=== PATIENT | male | born 1970 | race Caucasian/White ===

== ENCOUNTER → 2016-08-23 | Outpatient (CLI) | payer OTHER ==
--- NOTE | 2016-08-23 10:20 | DX ---
Right Clavicle, Two Views HISTORY: Fracture, follow up. COMPARISON: None available. FINDINGS: Comminuted displaced right clavicle fracture in the mid to distal diaphyseal shaft region w ith the proximal fragment displaced cephalad 2 cm. There are several small linear fragments between t he fracture lines. No definite callus formation. Right upper ribs demonstrate no definite fracture. IMPRESSION: Displaced comminuted right mid to distal clavicle fracture without alignment or callus fo rmation.
== END ==
LOC: BMCIMAGING 09:03
PROVIDERS: ATTEND Physician Assistant
DX: S42.021G Displaced fracture of shaft of right clavicle, subsequent encounter for fracture with delayed healing (principal)

== ENCOUNTER 2016-09-17 09:13 | Observation (INO) | payer OTHER ==
[2016-09-17] MEDS ORDERED: LORazepam 2 MG/ML INJ IVP ONE (09:39)
[2016-09-17] MEDS ORDERED: ONDANSETRON 4 MG/2 ML VIAL ONE (09:39)
[2016-09-17] MEDS ORDERED: ONDANSETRON 4 MG/2 ML VIAL IVP ONE ×2 (09:39→12:19)
[2016-09-17] MEDS ORDERED: NS 1,000 ML IV ONE ×2 (09:39→13:43)
--- NOTE | 2016-09-17 09:40 | EDPHY ---
HPI/HX/ROS/PE/MDM Narrative: Chief complaint: Shortness of breath, nausea HPI: Patient is presenting after waking up at 4 o'clock this morning with nausea and shortness of breath. Patient states that he had a similar episode several months ago and had extensive workup which was negative at that time. He is status post right clavicle surgery 3 weeks ago. No increasing swelling. No leg swelling. He has not been immobile. No recent fevers or chills. No cough. No nausea or vomiting. No chest pain. No abdominal pain. States he is just feeling nauseated is been vomiting but bilious yellow fluid. Feels like he just cannot get the full breath. Last episode was ultimately diagnosed as a panic attack. ROS: 10 point Review of Systems is negative except as noted in the HPI. Physical exam Gen: Awake, Alert, No Distress, anxious appearing HEENT: Nose: no rhinorrhea Eyes: PERRLA, EOMI Mouth: Moist mucosa Neck: Supple, no JVD Chest: nontender, lungs clear to auscultation Heart: S1, S2 normal, no murmur Abd: Soft, non-tender, no guarding Back: no CVA tenderness, no midline tenderness Ext: no edema, non-tender Skin: no rash Neuro: CN II-XII intact, Sensation grossly intact, Strength 5/5 in bilateral upper and lower extremities ED Course: EC:18 sinus bradycardia with a rate of 46. Normal axis. Normal intervals. No acute ST or T-wave changes. CT chest: No PE. Interpreted by radiologist. 46-year-old male presenting with nausea vomiting sensation taking his bed. He has had recent shoulder surgery. There are no findings suggestive of DVT at this time. His oxygenation is fine. He does have some bradycardia. Will check bloods including D-dimer, ECG, troponin, chest x-ray, IV fluids and antiemetics and reassess. Patient's D-dimer is noted to be elevated 1.0. This away count of 14 but no left shift. He is still feeling some nausea. Will will give him some Ativan at this time is also appears a little anxious. Will reassess. Patient has had a similar episode in the past which was negative workup at that time. Did not have any associated nausea vomiting. CT scan is noted and is negative for PE. Patient's oxygen sats are 99% on room air. He has continued complaints of nausea and vomiting not been had any success with 2 doses of Zofran a +Ativan. Abdomen is soft and nontender. He has had no diarrhea. Symptoms are possibly consistent with a influenza type picture. Unfortunately is not able to keep anything down and I have not been able to control his vomiting here after several hours. Will plan for admission to Medicine service for further evaluation. - Data Points Laboratory Results: Laboratory Results 09/17/16 09:38 09/17/16 09:38 09/17/16 09:38 WBC 14.49 H 10^3/uL (3.80-9.50) RBC 5.17 10^6/uL (4.40-6.38) Hgb 15.7 g/dL (13.7-17.5) Hct 46.1 % (40.0-51.0) MCV 89.2 fL (81.5-99.8) MCH 30.4 pg (27.9-34.1) MCHC 34.1 g/dL (32.4-36.7) RDW 12.4 % (11.5-15.2) Plt Count 227 10^3/uL (150-400) MPV 11.3 fL (8.7-11.7) Neut % (Auto) 74.2 % (39.3-74.2) Lymph % (Auto) 19.0 % (15.0-45.0) [place] % (Auto) 5.5 % (4.5-13.0) Eos % (Auto) 0.6 % (0.6-7.6) Baso % (Auto) 0.2 L % (0.3-1.7) Nucleat RBC Rel Count 0.0 % (0.0-0.2) Absolute Neuts (auto) 10.76 H 10^3/uL (1.70-6.50) Absolute Lymphs (auto) 2.75 10^3/uL (1.00-3.00) Absolute Monos (auto) 0.79 10^3/uL (0.30-0.80) Absolute Eos (auto) 0.09 10^3/uL (0.03-0.40) Absolute Basos (auto) 0.03 10^3/uL (0.02-0.10) Absolute Nucleated RBC 0.00 10^3/uL (0-0.01) Immature Gran % 0.5 % (0.0-1.1) Immature Gran # 0.07 10^3/uL (0.00-0.10) D-Dimer 1.00 H ug/mLFEU (0.00-0.50) Sodium 144 mEq/L (134-144) Potassium 4.5 mEq/L (3.5-5.2) Chloride 111 H mEq/L (97-110) Carbon Dioxide 18 L mEq/l (22-31) Anion Gap 15 mEq/L (8-16) BUN 28 H mg/dL (7-23) Creatinine 0.9 mg/dL (0.7-1.3) Estimated GFR > 60 Glucose 141 H mg/dL (70-100) Calcium 10.5 H mg/dL (8.5-10.4) Troponin I < 0.012 ng/mL (0-0.034) Medications Given: Discontinued Medications Sodium Chloride (Ns) 1,000 mls @ 0 mls/hr IV ONCE ONE PRN Reason: Wide Open Stop: 09/17/16 09:40 Last Admin: 09/17/16 09:46 Dose: 1,000 mls Lorazepam (Ativan Injection) 1 mg IVP EDNOW ONE Stop: 09/17/16 09:40 Last Admin: 09/17/16 10:12 Dose: 1 mg Ondansetron HCl (Zofran) 4 mg IVP EDNOW ONE Stop: 09/17/16 09:40 Last Admin: 09/17/16 09:45 Dose: 4 mg Ondansetron HCl (Zofran) 4 mg IVP EDNOW ONE Stop: 09/17/16 12:20 Last Admin: 09/17/16 12:34 Dose: 4 mg General Time Seen by Provider: 09/17/16 09:29 Initial Vital Signs: Initial Vital Signs Temperature (C) 36.2 C 09/17/16 09:14 Heart Rate 54 L 09/17/16 09:14 Respiratory Rate 16 09/17/16 09:14 Blood Pressure 107/75 09/17/16 09:14 O2 Sat (%) 99 09/17/16 09:14 O2 Delivery Mode Room Air Allergies/Adverse Reactions: No Known Allergies Allergy (Unverified 02/13/17 09:18) Home Medications: Medication Instructions Recorded NK [No Known Home Meds] 09/17/16 Departure - Departure Disposition: [facility] Inpatient Acute Clinical Impression: Vomiting, Shortness of breath Condition: Fair
[2016-09-17 09:46] LABS: % IMMATURE GRANULYOCYTES 0.5 % (0.0-1.1); ABSOLUTE IMMATURE GRANULOCYTES 0.07 10^3/uL (0.00-0.10); ADD DIFF? NO; ADD MORPH? NO; ADD SCAN? NO; ATYPICAL LYMPHOCYTE FLAG 0 (0-99); FRAGMENT RBC FLAG 0 (0-99); HEMATOCRIT 46.1 % (40.0-51.0); HEMOGLOBIN 15.7 g/dL (13.7-17.5); LEFT SHIFT FLG 0 (0-99); LIPEMIA HEMOLYSIS FLAG 90 (0-99); MEAN CELL HEMOGLOBIN 30.4 pg (27.9-34.1); MEAN CELL HEMOGLOBIN CONCENTR. 34.1 g/dL (32.4-36.7); MEAN CELL VOLUME 89.2 fL (81.5-99.8); MEAN PLATELET VOLUME 11.3 fL (8.7-11.7); PLATELET CLUMPS FLAG 10 (0-99); PLATELET COUNT 227 10^3/uL (150-400); RED BLOOD CELL COUNT 5.17 10^6/uL (4.40-6.38); RED CELL DISTRIBUTION WIDTH 12.4 % (11.5-15.2)
[2016-09-17 09:59] LABS: ANION GAP 15 mEq/L (8-16); CALCIUM 10.5 mg/dL (8.5-10.4); CARBON DIOXIDE 18 mEq/l (22-31); CHLORIDE 111 mEq/L (97-110); CREATININE 0.9 mg/dL (0.7-1.3); GLOMERULAR FILTRATION RATE > 60; GLUCOSE 141 mg/dL (70-100); POTASSIUM 4.5 mEq/L (3.5-5.2); SODIUM 144 mEq/L (134-144)
[2016-09-17 10:10] LABS: TROPONIN I < 0.012 ng/mL (0-0.034)
--- NOTE | 2016-09-17 10:12 | DX ---
Chest, AP Upright and Lateral Views, at 9:33 AM Clinical History: 46-year-old male with vomiting, anxiety, and a history of right clavicular surgery 3 weeks ago, with some shortness of breath. Comparison Study: Chest, dated 07/14/2015. Findings: Telemetry monitoring lead lines are present. The cardiac and mediastinal silhouette is norm al in size. There is no focal infiltrate, atelectasis, pleural effusion, peripheral interstitial marck a, or pneumothorax. The osseous structures are notable for a right clavicular [id number] diaphysea l fracture site with a malleable reconstruction plate secured by 7 orthopedic screws. The distal tip of the orthopedic plate projects over the roof of the acromioclavicular joint. On the lateral view, t he patient's arm overlies the central mediastinal structures. Impression: No acute intrathoracic abnormality.
--- NOTE | 2016-09-17 10:19 | CPEKG ---
Heart Rate: 46 RR Interval: 1304 P-R Interval: 164 QRSD Interval: 94 QT Interval: 496 QTC Interval: 434 P Harrison: 44 QRS Harrison: 61 T Wave Harrison: 30 EKG Severity - OTHERWISE NORMAL ECG - EKG Impression: SINUS BRADYCARDIA Electronically Signed By: Anusha Smalls 17-Sep-2016 14:59:13
[2016-09-17] MEDS ORDERED: IOPAMIDOL (ISOVUE 370) 100 ML BTL IV ONE (10:23)
--- NOTE | 2016-09-17 12:02 | CT ---
CT Pulmonary Angiogram History: Shortness of breath, chest pain, vomiting, fevers and chills, recent right clavicular fixat ion. Comparison: PA and lateral chest same day. Technique: Axial contrast-enhanced images were obtained through the chest following the uneventful in travenous administration of 90 mL Isovue-370. Creatinine is 0.9. Multiplanar reformations were perfo rmed through the pulmonary arteries. Dose reduction techniques were utilized. Findings: This is a good quality study with visualization of the vessels to the subsegmental level. T here is no pulmonary embolus. A 3-mm noncalcified anterior subpleural left upper lobe nodule (series 6 image 72) is most likely related to benign scarring/atelectasis. Heart size is normal. The interven tricular septum is normal. The aorta is normal caliber without dissection. No pathologically enlarged lymph nodes are identified. Right clavicular fixation is noted with anatomic positioning of the comm inuted fracture. 2.3-cm right adrenal adenoma has not significantly changed. Impression: 1. No visible pulmonary embolus. 2. 3-mm left upper lobe nodule most likely related to benign scarring/atelectasis. If the patient is a smoker or has a history of malignancy, unenhanced low dose chest CT is recommended for follow up in 12 months. Otherwise, no further follow up is needed per Fleischner Society criteria. 3. Stable right adrenal adenoma. 4. Additional findings as above. Findings discussed with Dr. Gary Ivey, on September 17, 2016 at 1150 hours.
[2016-09-17] MEDS ORDERED: KETOROLAC 30 MG/1 ML SDV IVP ONE (13:00)
[2016-09-17] MEDS ORDERED: METOCLOPRAMIDE 10 MG/2 ML VIAL IVP ONE (13:11)
[2016-09-17] MEDS ORDERED: PROMETHAZINE HCL 25 MG/ML INJ IVP PRN (14:06)
[2016-09-17] MEDS ORDERED: ACETAMINOPHEN 325 MG TAB PO PRN (14:06)
[2016-09-17] MEDS ORDERED: NS 1,000 ML IV SCH (14:15)
--- NOTE | 2016-09-17 15:07 | PDEACUHP ---
History and Physical - Chief Complaint "anxiety attack" - History of Present Illness 46 yo M with no significant PMH other than a recent clavicle fracture presenting with shortness of breath and n/v. It began this am and has now completely resolved. He has had similar issues in the past that were diagnosed as panic attacks, and this feels very much like that. He denies any particular stress or other issues that could have triggered this. He currently feels completely fine--no chest pain or sob, no nausea or vomiting. History Information - Allergies/Home Medication List Allergies/Adverse Reactions: No Known Allergies Allergy (Unverified 09/17/16 09:18) Home Medications: Herbals/Supplements -Info Only 1 ea PO AD 09/17/16 [Last Taken Unknown] I have personally reviewed and updated: family history, medical history, social history, surgical history - Past Medical History psychiatric history (panic attacks) - Surgical History Additional surgical history: clavicle surgery - Family History Positive for: non-pertinent - Social History Smoking Status: Former smoker Alcohol Use: Rarely Drug Use: None Additional social history: works as an asset recovery specialist, very athletic Review of Systems ROS: 10pt was reviewed & negative except for what was stated in HPI & below Physical Exam Temp Pulse Resp BP Pulse Ox 36.2 C 55 L 16 99/60 L 94 09/17/16 14:11 09/17/16 14:35 09/17/16 14:11 09/17/16 14:35 09/17/16 14:11 O2 (L/minute) 2 Constitutional: no apparent distress, appears nourished Eyes: PERRL Ears, Nose, Mouth, Throat: moist mucous membranes Cardiovascular: regular rate and rhythym, no murmur, rub, or gallop Respiratory: no respiratory distress, no rales or rhonchi Gastrointestinal: normoactive bowel sounds, soft, non-tender abdomen Skin: warm, normal color Musculoskeletal: full muscle strength Neurologic: AAOx3, sensation intact bilaterally Psychiatric: interacting appropriately, not anxious, not encephalopathic Lab Data & Imaging Review 09/17/16 09:38 09/17/16 09:38 WBC 14.49 10^3/uL (3.80-9.50) H 09/17/16 09:38 RBC 5.17 10^6/uL (4.40-6.38) 09/17/16 09:38 Hgb 15.7 g/dL (13.7-17.5) 09/17/16 09:38 Hct 46.1 % (40.0-51.0) 09/17/16 09:38 MCV 89.2 fL (81.5-99.8) 09/17/16 09:38 MCH 30.4 pg (27.9-34.1) 09/17/16 09:38 MCHC 34.1 g/dL (32.4-36.7) 09/17/16 09:38 RDW 12.4 % (11.5-15.2) 09/17/16 09:38 Plt Count 227 10^3/uL (150-400) 09/17/16 09:38 MPV 11.3 fL (8.7-11.7) 09/17/16 09:38 Neut % (Auto) 74.2 % (39.3-74.2) 09/17/16 09:38 Lymph % (Auto) 19.0 % (15.0-45.0) 09/17/16 09:38 [place] % (Auto) 5.5 % (4.5-13.0) 09/17/16 09:38 Eos % (Auto) 0.6 % (0.6-7.6) 09/17/16 09:38 Baso % (Auto) 0.2 % (0.3-1.7) L 09/17/16 09:38 Nucleat RBC Rel Count 0.0 % (0.0-0.2) 09/17/16 09:38 Absolute Neuts (auto) 10.76 10^3/uL (1.70-6.50) H 09/17/16 09:38 Absolute Lymphs (auto) 2.75 10^3/uL (1.00-3.00) 09/17/16 09:38 Absolute Monos (auto) 0.79 10^3/uL (0.30-0.80) 09/17/16 09:38 Absolute Eos (auto) 0.09 10^3/uL (0.03-0.40) 09/17/16 09:38 Absolute Basos (auto) 0.03 10^3/uL (0.02-0.10) 09/17/16 09:38 Absolute Nucleated RBC 0.00 10^3/uL (0-0.01) 09/17/16 09:38 Immature Gran % 0.5 % (0.0-1.1) 09/17/16 09:38 Immature Gran # 0.07 10^3/uL (0.00-0.10) 09/17/16 09:38 D-Dimer 1.00 ug/mLFEU (0.00-0.50) H 09/17/16 09:38 Sodium 144 mEq/L (134-144) 09/17/16 09:38 Potassium 4.5 mEq/L (3.5-5.2) 09/17/16 09:38 Chloride 111 mEq/L (97-110) H 09/17/16 09:38 Carbon Dioxide 18 mEq/l (22-31) L 09/17/16 09:38 Anion Gap 15 mEq/L (8-16) 09/17/16 09:38 BUN 28 mg/dL (7-23) H 09/17/16 09:38 Creatinine 0.9 mg/dL (0.7-1.3) 09/17/16 09:38 Estimated GFR > 60 09/17/16 09:38 Glucose 141 mg/dL (70-100) H 09/17/16 09:38 Calcium 10.5 mg/dL (8.5-10.4) H 09/17/16 09:38 Troponin I < 0.012 ng/mL (0-0.034) 09/17/16 09:38 Influenza Typ A,B (DFA) NEGATIVE FOR FLU (NEGATIVE) 09/17/16 13:20 Visualized and Interpreted Chest x-ray results: Yes Chest X-Ray results: no infiltrate Visualized and Interpreted imaging results: Yes Interpretation: CTA no PE, stable adrenal adenoma Visualized and Interpreted EKG results: Yes EKG Interpretation: Positive for: normal sinsus rhythm EKG additional interpertation: bradycardia Assessment & Plan Assessment: 46 yo M with pmh of panic attack admitted with sob/n/v # sob/n/v: unclear etiology, w/u so far unremarkable including ECG, cxr, CTA. Possible anginal equivalent though seems less likely. Has a hx of panic attack which has presented similar to this in the past. Will monitor overnight on tele , obtain serial ecg and troponins. PRN antiemetics. Currently sxs free. # NGMA: in setting of above, will re-evaluate in am # leukocytosis: without e/o infection, likely stress response but will trend # adrenal adenoma: stable # pulmonary nodule: 3mm nodule, patient has a brief smoking hx so will recommend f/u imaging in 12 months, likely scarring # dispo: observation status, will likely dc in am if initial w/u negative Patient new to my care. Old records reviewed and summarized as above. Care plan reviewed with ER doc including plans for overnight monitoring.
[2016-09-17] MEDS ORDERED: LORazepam 1 MG TAB PO PRN (15:11)
[2016-09-17] MEDS: ONDANSETRON DISINTEGRATING 4 MG TAB PO PRN (19:47)
[2016-09-17 20:38] VITALS: PULSE 46
[2016-09-18 06:26] LABS: ANION GAP 10 mEq/L (8-16); CALCIUM 8.8 mg/dL (8.5-10.4); CARBON DIOXIDE 22 mEq/l (22-31); CHLORIDE 113 mEq/L (97-110); CREATININE 0.8 mg/dL (0.7-1.3); GLOMERULAR FILTRATION RATE > 60; GLUCOSE 87 mg/dL (70-100); POTASSIUM 3.6 mEq/L (3.5-5.2); SODIUM 145 mEq/L (134-144)
[2016-09-18 06:56] LABS: % IMMATURE GRANULYOCYTES 0.4 % (0.0-1.1); ABSOLUTE IMMATURE GRANULOCYTES 0.04 10^3/uL (0.00-0.10); ADD DIFF? NO; ADD MORPH? NO; ADD SCAN? NO; ATYPICAL LYMPHOCYTE FLAG 10 (0-99); FRAGMENT RBC FLAG 20 (0-99); HEMOGLOBIN 12.6 g/dL (13.7-17.5); LEFT SHIFT FLG 0 (0-99); LIPEMIA HEMOLYSIS FLAG 80 (0-99); MEAN CELL HEMOGLOBIN 30.1 pg (27.9-34.1); MEAN CELL HEMOGLOBIN CONCENTR. 33.2 g/dL (32.4-36.7); MEAN CELL VOLUME 90.9 fL (81.5-99.8); MEAN PLATELET VOLUME 11.7 fL (8.7-11.7); PLATELET CLUMPS FLAG 10 (0-99); PLATELET COUNT 172 10^3/uL (150-400); RED BLOOD CELL COUNT 4.18 10^6/uL (4.40-6.38); RED CELL DISTRIBUTION WIDTH 12.8 % (11.5-15.2)
[2016-09-18] MEDS ORDERED: KETOROLAC 15 MG/1 ML SDV IVP PRN (08:38)
--- NOTE | 2016-09-18 09:23 | HOSPPROG ---
Hospitalist Progress Note Assessment/Plan: 46 yo M with pmh of presumed panic attack pw sob/n/v similar to prior bouts of panic # sob: has resolved, w/u including cxr, CTA chest, ecg, serial trops and tele monitoring wnl. O2 sats wnl. Unclear etiology but possibly related to anxiety. # n/v: recurrent again today, unable to tolerate diet. Exam benign and no c/o abdominal pain. No e/o sepsis. Will get lfts/lipase and w/u further if these are abnormal. Most likely viral gastroenteritis. # leukocytosis: improved but remains marginally elevated, again, no clear e/o infection thus far. Continue monitoring. # anemia: mild with drop in h/h likely dilutional and patient likely somewhat hemoconcentrated on admission. Continue to trend # pulmonary nodule: likely related to scarring but recommending f/u CT in 1 year to ensure stability # dispo: observation status, if n/v resolves today could likely dc home later today Subjective: no significant overnight events, n/v recurred today, no sob, no chest pain Objective: Vital Signs Temp Pulse Resp BP Pulse Ox 36.9 C 46 L 19 107/66 98 09/18/16 07:22 09/18/16 07:22 09/18/16 07:22 09/18/16 07:22 09/18/16 07:22 Laboratory Results 09/18/16 05:09 09/18/16 05:09 09/17/16 09/18/16 09/19/16 05:59 05:59 05:59 Intake Total 2340 Balance 2340 awake alert nad anicteric op clear rrr no mrg mildly renny cta b to ant exam soft nt nd +bs no cce right arm in sling with surgical incision cdi warm dry well perfused oriented appropriate ICD10 Worksheet Patient Problems: Problems Problem Status Onset Vomiting Acute Nausea & vomiting Acute Shortness of breath Acute
[2016-09-18 09:58] LABS: ALBUMIN 3.4 g/dL (3.5-5.0); BILIRUBIN,TOTAL 0.8 mg/dL (0.1-1.4); BILIRUBIN-CONJUGATED 0.3 mg/dL (0.0-0.5); BILIRUBIN-UNCONJUGATED 0.5 mg/dL (0.0-1.1); TOTAL PROTEIN 5.5 g/dL (6.3-8.2)
[2016-09-18 11:10] VITALS: BP 106/59; RESP 20; TEMP 98.1; O2SAT 97
[2016-09-18] MEDS: ONDANSETRON DISINTEGRATING 4 MG TAB PO PRN (12:14)
--- NOTE | 2016-09-18 16:43 | PDDCSUM ---
Discharge Summary Discharge Summary: Dates of service 09/17-09/18/16 Discharge dx: # n/v # sob # anxiety Consultations/procedures: none Hospital course by problem: # sob: has resolved, w/u including cxr, CTA chest, ecg, serial trops and tele monitoring wnl. O2 sats wnl. Unclear etiology but possibly related to anxiety. # n/v: now resolved. Exam benign and no c/o abdominal pain. No e/o sepsis. Most likely viral gastroenteritis. tolerating diet # leukocytosis: improved but remains marginally elevated, again, no clear e/o infection thus far. Continue monitoring. # anemia: mild with drop in h/h likely dilutional and patient likely somewhat hemoconcentrated on admission. Continue to trend # pulmonary nodule: likely related to scarring but recommending f/u CT in 1 year to ensure stability Dispo: dc home f/u with PCP in next 1-2 weeks Meds: see EHR
== END 2016-09-18 17:21 | disposition home or self-care (01) ==
LOC: F1N 13:57
PROVIDERS: ADMIT Internal Medicine; ATTEND Internal Medicine
DX: R06.02 Shortness of breath (principal); R11.2 Nausea with vomiting, unspecified; F41.9 Anxiety disorder, unspecified; D72.829 Elevated white blood cell count, unspecified; D64.9 Anemia, unspecified; R91.1 Solitary pulmonary nodule; E27.9 Disorder of adrenal gland, unspecified; Z98.890 Other specified postprocedural states; Z87.891 Personal history of nicotine dependence
CPT/HCPCS: 71020; 96361; 96374; 96375; 96376; 99285; G0378; J1885; J2405; J2550; J2765; Q9967

== ENCOUNTER 2016-09-19 06:51 | Emergency (ER) | payer OTHER ==
[2016-09-19] MEDS ORDERED: NS 1,000 ML IV ONE ×3 (07:23→09:21)
[2016-09-19] MEDS ORDERED: ONDANSETRON 4 MG/2 ML VIAL IVP ONE (08:05)
--- NOTE | 2016-09-19 08:09 | EDPHY ---
H & P Stated Complaint: post shoulder surgery n/v/d not responsive to zofran/ hospitalized yesterday Time Seen by Provider: 09/19/16 07:57 HPI/ROS: CHIEF COMPLAINT: Vomiting and diarrhea HISTORY OF PRESENT ILLNESS: The patient is a 46-year-old man who comes to the emergency department complaining of nausea vomiting and diarrhea that began around midnight. symptoms began on Saturday night and he was admitted Saturday and Saturday to the hospital. He also complained of shortness of breath and had a negative chest x-ray, EKG, CT angio his chest and serial troponins as well as monitoring. Is ultimately thought to be secondary to anxiety. He has a clavicle fracture repaired 1 month ago. He states that that is doing well. He has been afebrile. He states that is doing well yesterday but overnight his nausea and vomiting returned. He took 2 doses of Zofran with moderate improvement although now states that his symptoms have pretty much resolved. He denies abdominal pain. He states that this is the 4th episode of nausea vomiting and diarrhea he has had last 6 months. He has had extensive workups with Cardiology and oncology without any specific diagnosis made. It does not seem to be related to the Clavicle surgery. REVIEW OF SYSTEMS: Constitutional: denies: chills, fever, recent illness, recent injury EENTM: denies: blurred vision, double vision, nose congestion Respiratory: denies: cough, shortness of breath Cardiac: denies: chest pain, irregular heart rate, lightheadedness, palpitations Gastrointestinal/Abdominal: See HPI Genitourinary: denies: dysuria, frequency, hematuria, pain Musculoskeletal: denies: joint pain, muscle pain Skin: denies: lesions, rash, jaundice, bruising Neurological: denies: headache, numbness, paresthesia, tingling, dizziness, weakness Hematologic/Lymphatic: denies: blood clots, easy bleeding, easy bruising Immunologic/allergic: denies: HIV/AIDS, transplant EXAM: GENERAL: Well-appearing, well-nourished and in no acute distress. HEAD: Atraumatic, normocephalic. EYES: Pupils equal round and reactive to light, extraocular movements intact, sclera anicteric, conjunctiva are normal. ENT: TMs normal, nares patent, oropharynx clear without exudates. Moist mucous membranes. NECK: Normal range of motion, supple without lymphadenopathy or JVD. LUNGS: Breath sounds clear to auscultation bilaterally and equal. No wheezes rales or rhonchi. HEART: Regular rate and rhythm without murmurs, rubs or gallops. ABDOMEN: Soft, nontender, normoactive bowel sounds. No guarding, no rebound. No masses appreciated. BACK: No CVA tenderness, no spinal tenderness, step-offs or deformities EXTREMITIES: Normal range of motion, no pitting or edema. No clubbing or cyanosis. NEUROLOGICAL: Cranial nerves II through XII grossly intact. Normal speech, normal gait. 5/5 strength, normal movement in all extremities, normal sensation PSYCH: Normal mood, normal affect. SKIN: Warm, dry, normal turgor, no visible rashes or lesions. Source: Patient Exam Limitations: No limitations - Personal History Current Tetanus/Diphtheria Vaccine: Yes Tetanus Vaccine Date: < 10 YEARS - Medical/Surgical History Hx Asthma: No Hx Chronic Respiratory Disease: No Hx Diabetes: No Hx Cardiac Disease: No Hx Renal Disease: No Hx Cirrhosis: No Hx Alcoholism: No Hx HIV/AIDS: No Hx Splenectomy or Spleen Trauma: No Other PMH: medical adenogland cyst, R SHOULDER surgery, - Family History Significant Family History: Hypertension - Social History Smoking Status: Former smoker Alcohol Use: Sober Drug Use: None Constitutional: Initial Vital Signs Temperature (C) 36.5 C 09/19/16 07:06 Heart Rate 52 L 09/19/16 07:06 Respiratory Rate 22 H 09/19/16 07:06 Blood Pressure 92/63 L 09/19/16 07:06 O2 Sat (%) 98 09/19/16 07:06 O2 Delivery Mode Room Air Allergies/Adverse Reactions: No Known Allergies Allergy (Verified 09/19/16 07:06) Home Medications: Medication Instructions Recorded Herbals/Supplements -Info Only 1 ea PO AD 09/17/16 Acetaminophen [Tylenol 325mg (*)] 650 mg PO Q6HRS PRN #0 tab 09/18/16 Ondansetron Odt [Zofran Odt 4 mg 4 mg PO Q4HRS PRN #20 tab 09/18/16 (*)] Medical Decision Making ED Course/Re-evaluation: 9:20 a.m. the patient is feeling much better. No more nausea or vomiting. No diarrhea. He was able to urinate. He is requesting a 3 L. He states that he has not slept in 3 days and would like a sleep aid. Otherwise he is feeling like he ready go home. He states that the Zofran has been working for him and does not require another prescription. He thinks that a large component of this may be anxiety. I will have him follow up with GI for his recurrent GI symptoms. Differential Diagnosis: Partial list of the Differential diagnosis considered include but were not limited to; gastritis, food poisoning, peptic ulcer disease, allergic reaction , anxiety and although unlikely based on the history and physical exam, I also considered perforation, ischemia, obstruction, appendicitis, biliary disease. I discussed these differential diagnoses and the plan with the patient as well as the usual and expected course. The patient understands that the diagnosis is provisional and that in medicine we are not always correct and that further workup is often warranted. Usual and customary warnings were given. All of the patient's questions were answered. The patient was instructed to return to the emergency department should the symptoms at all worsen or return, otherwise to followup with the physician as we discussed. - Data Points Laboratory Results: Laboratory Results 09/19/16 07:20 09/19/16 07:20 09/19/16 09/19/16 07:20 07:20 WBC 13.76 10^3/uL H 10^3/uL (3.80-9.50) RBC 4.73 10^6/uL 10^6/uL (4.40-6.38) Hgb 14.5 g/dL g/dL (13.7-17.5) Hct 41.6 % % (40.0-51.0) MCV 87.9 fL fL (81.5-99.8) MCH 30.7 pg pg (27.9-34.1) MCHC 34.9 g/dL g/dL (32.4-36.7) RDW 12.4 % % (11.5-15.2) Plt Count 198 10^3/uL 10^3/uL (150-400) MPV 12.2 fL H fL (8.7-11.7) Neut % (Auto) 76.3 % H % (39.3-74.2) Lymph % (Auto) 18.0 % % (15.0-45.0) [place] % (Auto) 5.0 % % (4.5-13.0) Eos % (Auto) 0.1 % L % (0.6-7.6) Baso % (Auto) 0.3 % % (0.3-1.7) Nucleat RBC Rel Count 0.0 % % (0.0-0.2) Absolute Neuts (auto) 10.50 10^3/uL H 10^3/uL (1.70-6.50) Absolute Lymphs (auto) 2.48 10^3/uL 10^3/uL (1.00-3.00) Absolute Monos (auto) 0.69 10^3/uL 10^3/uL (0.30-0.80) Absolute Eos (auto) 0.01 10^3/uL L 10^3/uL (0.03-0.40) Absolute Basos (auto) 0.04 10^3/uL 10^3/uL (0.02-0.10) Absolute Nucleated RBC 0.00 10^3/uL 10^3/uL (0-0.01) Immature Gran % 0.3 % % (0.0-1.1) Immature Gran # 0.04 10^3/uL 10^3/uL (0.00-0.10) Sodium 141 mEq/L mEq/L (134-144) Potassium 3.5 mEq/L mEq/L (3.5-5.2) Chloride 108 mEq/L mEq/L (97-110) Carbon Dioxide 19 mEq/l L mEq/l (22-31) Anion Gap 14 mEq/L mEq/L (8-16) BUN 20 mg/dL mg/dL (7-23) Creatinine 0.8 mg/dL mg/dL (0.7-1.3) Estimated GFR > 60 Glucose 91 mg/dL mg/dL (70-100) Calcium 9.7 mg/dL mg/dL (8.5-10.4) Total Bilirubin 1.0 mg/dL mg/dL (0.1-1.4) Conjugated Bilirubin 0.5 mg/dL mg/dL (0.0-0.5) Unconjugated Bilirubin 0.5 mg/dL mg/dL (0.0-1.1) AST 27 IU/L IU/L (17-59) ALT 40 IU/L IU/L (21-72) Alkaline Phosphatase 63 IU/L IU/L (38-126) Total Protein 6.9 g/dL D g/dL (6.3-8.2) Albumin 4.4 g/dL g/dL (3.5-5.0) Lipase 208.0 IU/L IU/L (23-300) TSH 1.910 uIU/mL uIU/mL (0.465-4.680) Medications Given: Discontinued Medications Sodium Chloride (Ns) 1,000 mls @ 0 mls/hr IV ONCE ONE PRN Reason: Wide Open Stop: 09/19/16 07:24 Last Admin: 09/19/16 07:24 Dose: 1,000 mls Sodium Chloride (Ns) 1,000 mls @ 0 mls/hr IV ONCE ONE PRN Reason: Wide Open Stop: 09/19/16 08:06 Last Admin: 09/19/16 08:36 Dose: 1,000 mls Sodium Chloride (Ns) 1,000 mls @ 0 mls/hr IV ONCE ONE PRN Reason: Wide Open Stop: 09/19/16 09:22 Last Admin: 09/19/16 09:35 Dose: 1,000 mls Lorazepam (Ativan 1 Mg Prepack#4) 1 btl TAKEHOME EDNOW ONE Stop: 09/19/16 09:22 Last Admin: 09/19/16 09:39 Dose: 1 btl Ondansetron HCl (Zofran) 4 mg IVP EDNOW ONE Stop: 09/19/16 08:06 Last Admin: 09/19/16 08:36 Dose: 4 mg Departure - Departure Disposition: Home, Routine, Self-Care Clinical Impression: Nausea & vomiting Qualifiers: Vomiting type: unspecified Vomiting Intractability: non-intractable Qualified Code(s): R11.2 - Nausea with vomiting, unspecified Condition: Fair Instructions: Lorazepam (By mouth), Acute Nausea and Vomiting (ED) Referrals: Samuel Wade MD [Primary Care Provider] - As per Instructions Torin Milligan MD [Medical Doctor] - As per Instructions
[2016-09-19 08:19] LABS: % IMMATURE GRANULYOCYTES 0.3 % (0.0-1.1); ABSOLUTE IMMATURE GRANULOCYTES 0.04 10^3/uL (0.00-0.10); ADD DIFF? NO; ADD MORPH? NO; ADD SCAN? NO; ATYPICAL LYMPHOCYTE FLAG 0 (0-99); FRAGMENT RBC FLAG 0 (0-99); HEMATOCRIT 41.6 % (40.0-51.0); HEMOGLOBIN 14.5 g/dL (13.7-17.5); LEFT SHIFT FLG 0 (0-99); LIPEMIA HEMOLYSIS FLAG 90 (0-99); MEAN CELL HEMOGLOBIN 30.7 pg (27.9-34.1); MEAN CELL HEMOGLOBIN CONCENTR. 34.9 g/dL (32.4-36.7); MEAN CELL VOLUME 87.9 fL (81.5-99.8); MEAN PLATELET VOLUME 12.2 fL (8.7-11.7); PLATELET CLUMPS FLAG 0 (0-99); PLATELET COUNT 198 10^3/uL (150-400); RED BLOOD CELL COUNT 4.73 10^6/uL (4.40-6.38); RED CELL DISTRIBUTION WIDTH 12.4 % (11.5-15.2)
[2016-09-19 08:30] LABS: ALANINE AMINOTRANSFERASE 40 IU/L (21-72); ALBUMIN 4.4 g/dL (3.5-5.0); ALKALINE PHOSPHATASE 63 IU/L (38-126); ANION GAP 14 mEq/L (8-16); ASPARTATE AMINOTRANSFERASE 27 IU/L (17-59); BILIRUBIN-CONJUGATED 0.5 mg/dL (0.0-0.5); BILIRUBIN-UNCONJUGATED 0.5 mg/dL (0.0-1.1); CALCIUM 9.7 mg/dL (8.5-10.4); CARBON DIOXIDE 19 mEq/l (22-31); CHLORIDE 108 mEq/L (97-110); CREATININE 0.8 mg/dL (0.7-1.3); GLOMERULAR FILTRATION RATE > 60; GLUCOSE 91 mg/dL (70-100); POTASSIUM 3.5 mEq/L (3.5-5.2); SODIUM 141 mEq/L (134-144); TOTAL PROTEIN 6.9 g/dL (6.3-8.2)
[2016-09-19] MEDS ORDERED: LORAZEPAM 1 MG PREPACK#4 BTL TAKEHOME ONE (09:21)
[2016-09-19 10:40] VITALS: BP 110/64; PULSE 75; RESP 18; TEMP 98.6; O2SAT 97
== END 2016-09-19 10:39 | disposition home or self-care (01) ==
DX: R11.2 Nausea with vomiting, unspecified (principal); Z87.891 Personal history of nicotine dependence
CPT/HCPCS: 96374; J2405

== ENCOUNTER → 2016-10-09 | Outpatient (CLI) | payer OTHER | LOC: BMCIMAGING 16:16 | PROVIDERS: ATTEND Physician Assistant | DX: S42.021D Displaced fracture of shaft of right clavicle, subsequent encounter for fracture with routine healing (principal); R93.6 Abnormal findings on diagnostic imaging of limbs ==

== ENCOUNTER → 2016-11-13 | Outpatient (CLI) | payer OTHER | LOC: BMCIMAGING 12:54 | PROVIDERS: ATTEND Physician Assistant | DX: S42.021D Displaced fracture of shaft of right clavicle, subsequent encounter for fracture with routine healing (principal); Z96.9 Presence of functional implant, unspecified ==

== ENCOUNTER 2016-11-20 04:18 | Emergency (ER) | payer OTHER ==
--- NOTE | 2016-11-20 04:25 | EDPHY ---
H & P Stated Complaint: c/o n/v/sob on waking early this am HPI/ROS: HPI CHIEF COMPLAINT: Nausea, vomiting, anxiety HISTORY OF PRESENT ILLNESS: This patient 46-year-old male significant past medical history for panic attacks, presents emergency room by private vehicle for 30 in the morning he states he woke up with nausea got very anxious started hyperventilate. States he could not catch his breath suite drove here to the emergency room. Denies chest pain. Denies recent illness. States he has had this happen no multiple times a 4th episode of this. Tells me feels exactly like his previous panic attacks. upon arrival here in the emergency room the patient appears very anxious hyperventilating. Past Medical History: Anxiety, panic attack Past Surgical History: right clavicle surgery Social History: smokes marijuana, last smoked last night, denies tobacco or other illicit drugs Family History: Noncontributory ROS REVIEW OF SYSTEMS: A comprehensive 10 point review of systems is otherwise negative aside from elements mentioned in the history of present illness. Exam Constitutional anxious, hyperventilating triage nursing summary reviewed, vital signs reviewed, awake/alert. (pulse ox 100%) Eyes normal conjunctivae and sclera, EOMI, PERRLA. HENT normal inspection, atraumatic, moist mucus membranes, no epistaxis, neck supple/ no meningismus, no raccoon eyes. Respiratory clear to auscultation bilaterally, normal breath sounds, no respiratory distress, no wheezing. Cardiovascular rate normal, regular rhythm, no murmur, no edema, distal pulses normal. Gastrointestinal soft, non-tender, no rebound, no guarding, normal bowel sounds, no distension, no pulsatile mass. Genitourinary no CVA tenderness. Musculoskeletal no midline vertebral tenderness, full range of motion, no calf swelling, no tenderness of extremities, no meningismus, good pulses, neurovascularly intact. Skin pink, warm, & dry, no rash, skin atraumatic. Neurologic awake, alert and oriented x 3, AAOx3, moves all 4 extremities equally, motor intact, sensory intact, CN II-XII intact, normal cerebellar, normal vision, normal speech. Psychiatric anxious Heme/Lymph/Immune no lymphadenopathy. Differential Diagnosis: Includes but is not limited to in a particular order acute anxiety, panic attack, electrolyte disturbance, dehydration, hyperventilation syndrome, marijuana induced nausea vomiting leading to anxiety Medical Decision Making:Plan for this patient IV establishment blood work IV Ativan for acute anxiety IV fluid bolus 1 L normal saline, IV Zofran for nausea. Check electrolytes. EKG. Re-evaluation: EKG interpretation by me on record in [employer] system. Impression time of EKG 4:43 a.m., this is sinus rhythm rate of 57 no acute ischemic changes appreciated. Specifically no ST elevation, ST depression T-wave abnormalities. QT interval is prolonged 516. When compared to his old EKG dated 09/17/2016 very similar morphology. This EKG was also sinus bradycardia 46 with a QT interval 496. [id number]: Patient is feeling much better after IV Ativan 1 mg. He tells me his anxiety is greatly improved. [id number]: Patient tells me he feels much better. Greatly improved after 1 mg IV Ativan. Resting comfortably at this time. Her rate currently 60. Pulse ox 96% on room air. No complaints at this time. Will be set up for discharge she is agreeable for discharge planning him going home. Needs safe ride home. Source: Patient - Personal History Tetanus Vaccine Date: < 10 YEARS - Medical/Surgical History Hx Asthma: No Hx Chronic Respiratory Disease: No Hx Diabetes: No Hx Cardiac Disease: No Hx Renal Disease: No Hx Cirrhosis: No Hx Alcoholism: No Hx HIV/AIDS: No Hx Splenectomy or Spleen Trauma: No Other PMH: medical adenogland cyst, R SHOULDER surgery, anxiety - Social History Smoking Status: Former smoker Constitutional: Initial Vital Signs Temperature (C) 36.4 C 11/20/16 04:21 Heart Rate 52 L 11/20/16 04:21 Respiratory Rate 22 H 11/20/16 04:21 Blood Pressure 119/72 11/20/16 04:21 O2 Sat (%) 100 11/20/16 04:21 O2 Delivery Mode Nasal Cannula O2 (L/minute) 2 Allergies/Adverse Reactions: No Known Allergies Allergy (Verified 11/20/16 04:24) Home Medications: Medication Instructions Recorded Herbals/Supplements -Info Only 1 ea PO AD 09/17/16 Acetaminophen [Tylenol 325mg (*)] 650 mg PO Q6HRS PRN #0 tab 09/18/16 Ondansetron Odt [Zofran Odt 4 mg 4 mg PO Q4HRS PRN #20 tab 09/18/16 (*)] Medical Decision Making - Data Points Laboratory Results: Laboratory Results 11/20/16 04:29 11/20/16 04:34 11/20/16 11/20/16 04:34 04:29 WBC 20.10 10^3/uL H 10^3/uL (3.80-9.50) RBC 5.05 10^6/uL 10^6/uL (4.40-6.38) Hgb 15.5 g/dL g/dL (13.7-17.5) Hct 44.2 % % (40.0-51.0) MCV 87.5 fL fL (81.5-99.8) MCH 30.7 pg pg (27.9-34.1) MCHC 35.1 g/dL g/dL (32.4-36.7) RDW 12.8 % % (11.5-15.2) Plt Count 188 10^3/uL 10^3/uL (150-400) MPV 11.6 fL fL (8.7-11.7) Neut % (Auto) 72.1 % % (39.3-74.2) Lymph % (Auto) 20.7 % % (15.0-45.0) [place] % (Auto) 5.3 % % (4.5-13.0) Eos % (Auto) 0.8 % % (0.6-7.6) Baso % (Auto) 0.3 % % (0.3-1.7) Nucleat RBC Rel Count 0.0 % % (0.0-0.2) Absolute Neuts (auto) 14.46 10^3/uL H 10^3/uL (1.70-6.50) Absolute Lymphs (auto) 4.17 10^3/uL H 10^3/uL (1.00-3.00) Absolute Monos (auto) 1.06 10^3/uL H 10^3/uL (0.30-0.80) Absolute Eos (auto) 0.17 10^3/uL 10^3/uL (0.03-0.40) Absolute Basos (auto) 0.07 10^3/uL 10^3/uL (0.02-0.10) Absolute Nucleated RBC 0.00 10^3/uL 10^3/uL (0-0.01) Immature Gran % 0.8 % % (0.0-1.1) Immature Gran # 0.17 10^3/uL H 10^3/uL (0.00-0.10) Sodium 140 mEq/L mEq/L (134-144) Potassium 3.8 mEq/L mEq/L (3.5-5.2) Chloride 106 mEq/L mEq/L (97-110) Carbon Dioxide 22 mEq/l mEq/l (22-31) Anion Gap 12 mEq/L mEq/L (8-16) BUN 23 mg/dL mg/dL (7-23) Creatinine 0.8 mg/dL mg/dL (0.7-1.3) Estimated GFR > 60 Glucose 127 mg/dL H mg/dL (70-100) Calcium 10.7 mg/dL H mg/dL (8.5-10.4) Phosphorus 1.0 mg/dL L mg/dL (2.5-4.5) Medications Given: Discontinued Medications Sodium Chloride (Ns) 1,000 mls @ 0 mls/hr IV ONCE ONE PRN Reason: Wide Open Stop: 11/20/16 04:31 Last Admin: 11/20/16 04:45 Dose: 1,000 mls Lorazepam (Ativan Injection) 1 mg IVP EDNOW ONE Stop: 11/20/16 04:31 Last Admin: 11/20/16 04:46 Dose: 1 mg Ondansetron HCl (Zofran) 4 mg IVP EDNOW ONE Stop: 11/20/16 04:31 Last Admin: 11/20/16 04:46 Dose: 4 mg Departure - Departure Disposition: Home, Routine, Self-Care Clinical Impression: Anxiety Condition: Good Instructions: Anxiety (ED) Referrals: Samuel Wade MD [Primary Care Provider] - As per Instructions
[2016-11-20] MEDS ORDERED: ONDANSETRON 4 MG/2 ML VIAL IVP ONE (04:30)
[2016-11-20] MEDS ORDERED: LORazepam 2 MG/ML INJ IVP ONE ×2 (04:30→05:44)
[2016-11-20] MEDS ORDERED: NS 1,000 ML IV ONE ×2 (04:30→05:43)
[2016-11-20 04:45] LABS: % IMMATURE GRANULYOCYTES 0.8 % (0.0-1.1); ABSOLUTE IMMATURE GRANULOCYTES 0.17 10^3/uL (0.00-0.10); ADD DIFF? NO; ADD MORPH? NO; ADD SCAN? NO; ATYPICAL LYMPHOCYTE FLAG 0 (0-99); FRAGMENT RBC FLAG 0 (0-99); HEMATOCRIT 44.2 % (40.0-51.0); HEMOGLOBIN 15.5 g/dL (13.7-17.5); LEFT SHIFT FLG 0 (0-99); LIPEMIA HEMOLYSIS FLAG 90 (0-99); MEAN CELL HEMOGLOBIN 30.7 pg (27.9-34.1); MEAN CELL HEMOGLOBIN CONCENTR. 35.1 g/dL (32.4-36.7); MEAN CELL VOLUME 87.5 fL (81.5-99.8); MEAN PLATELET VOLUME 11.6 fL (8.7-11.7); PLATELET CLUMPS FLAG 0 (0-99); PLATELET COUNT 188 10^3/uL (150-400); RED BLOOD CELL COUNT 5.05 10^6/uL (4.40-6.38); RED CELL DISTRIBUTION WIDTH 12.8 % (11.5-15.2)
--- NOTE | 2016-11-20 05:00 | CPEKG ---
Heart Rate: 57 RR Interval: 1053 P-R Interval: 152 QRSD Interval: 100 QT Interval: 516 QTC Interval: 503 [address] [place]: 64 QRS [place]: 74 T Wave [place]: 38 EKG Severity - ABNORMAL ECG - EKG Impression: SINUS RHYTHM EKG Impression: PROLONGED QT INTERVAL (NEW IN COMPARISON TO PRIOR) Electronically Signed By: Jag Pulido 21-Nov-2016 23:51:30
[2016-11-20 05:08] LABS: ANION GAP 12 mEq/L (8-16); CALCIUM 10.7 mg/dL (8.5-10.4); CARBON DIOXIDE 22 mEq/l (22-31); CHLORIDE 106 mEq/L (97-110); CREATININE 0.8 mg/dL (0.7-1.3); GLOMERULAR FILTRATION RATE > 60; GLUCOSE 127 mg/dL (70-100); POTASSIUM 3.8 mEq/L (3.5-5.2); SODIUM 140 mEq/L (134-144)
[2016-11-20] MEDS ORDERED: ONDANSETRON 4MG PREPACK#2 BTL TAKEHOME ONE ×2 (07:06)
[2016-11-20 07:13] VITALS: BP 98/56; PULSE 50; RESP 18; TEMP 98.1; O2SAT 100
== END 2016-11-20 07:13 | disposition home or self-care (01) ==
DX: F41.9 Anxiety disorder, unspecified (principal); Z87.891 Personal history of nicotine dependence
CPT/HCPCS: 96374; J2060; J2405

== ENCOUNTER 2016-12-22 13:46 | Emergency (ER) | payer OTHER ==
[2016-12-22 13:53] VITALS: BP 106/60; PULSE 55; RESP 26; TEMP 97.5
[2016-12-22] MEDS ORDERED: ONDANSETRON 4 MG/2 ML VIAL ONE (14:18)
[2016-12-22] MEDS ORDERED: ONDANSETRON 4 MG/2 ML VIAL IVP ONE (14:33)
[2016-12-22] MEDS ORDERED: NS 1,000 ML IV ONE (14:33)
--- NOTE | 2016-12-22 14:54 | EDPHY ---
H & P Time Seen by Provider: 12/22/16 14:50 HPI/ROS: CHIEF COMPLAINT: Nausea and vomiting HISTORY OF PRESENT ILLNESS: This patient is a 46 year old male who presents to the Emergency Department complaining of acute nausea and vomiting beginning at 400 today. He describes waking up from sleep feeling anxious, short of breath, and nauseated. Multiple episodes of vomiting today. Associated with anxiety. He denies fever, diarrhea, abdominal pain, or additional complaints. He has a history of four episodes of similar presentation over the past year, all of which presented with associated anxiety. He has not been evaluated by his PCP for these symptoms. He reports occasional marijuana use. REVIEW OF SYSTEMS: Constitutional: No fever, no chills Eyes: No visual changes ENT: No sore throat Respiratory: +shortness of breath, no cough Cardiac: No chest pain Gastrointestinal: +nausea, +vomiting, no abdominal pain Genitourinary: No hematuria, no dysuria Musculoskeletal: No leg pain or swelling Skin: No rash Neurological: +dizziness, no headache, no numbness, no weakness Psychiatric: +anxiety, no depression Past Medical/Surgical History: Anxiety. Social History: Does not smoke tobacco. Smokes marijuana occasionally. Drinks alcohol rarely. Smoking Status: Former smoker Physical Exam: General Appearance: Pale, calm, no distress Eyes: Pupils equal and round, no conjunctival pallor or injection ENT, Mouth: Mucous membranes moist Neck: Normal inspection Respiratory: Lungs are clear to auscultation Cardiovascular: Regular rate and rhythm Gastrointestinal: Abdomen is soft with epigastric tenderness Neurological: A&O, nonfocal, normal gait Skin: Warm and dry, no rash Extremities: Nontender, no pedal edema Psychiatric: Mood and affect normal Constitutional: Initial Vital Signs Temperature (C) 36.4 C 12/22/16 13:50 Heart Rate 55 L 12/22/16 13:50 Respiratory Rate 26 H 12/22/16 13:50 Blood Pressure 106/60 12/22/16 13:50 O2 Sat (%) 100 12/22/16 13:50 O2 Delivery Mode Room Air O2 (L/minute) 2 Allergies/Adverse Reactions: No Known Allergies Allergy (Verified 11/20/16 04:24) Home Medications: Medication Instructions Recorded Ondansetron Odt [Zofran Odt 4 mg 4 mg PO Q4 PRN #6 tab 12/22/16 (*)] Medical Decision Making ED Course/Re-evaluation: This 46-year-old male presents with what appears to be an episodic syndrome presenting as acute nausea with vomiting, anxiety, and shortness of breath for which the patient has been treated at the ED four times this year. At time of presentation, he reports persistent nausea. He was tachypneic at time of triage but is now breathing normally and resting comfortably. Will proceed with labs. IV established. 1L IV NS, 1mg IV Ativan, and 4mg IV Zofran administered. Labs obtained and are unremarkable. 1553: On reevaluation, the patient is feeling much better. I discussed with him my recommendation that he follow-up with his PCP for further evaluation of these episodes. I also discussed possible association between marijuana use and cyclic vomiting syndrome. He is given customary return precautions prior to discharge. He will be discharged home in good condition. Differential Diagnosis: The differential diagnosis for the patient's nausea and vomiting included but was not limited to cyclic vomiting syndrome, gastroenteritis, gastritis, appendicitis, and medication side effect. - Data Points Medications Given: Discontinued Medications Sodium Chloride (Ns) 1,000 mls @ 0 mls/hr IV ONCE ONE PRN Reason: Wide Open Stop: 12/22/16 14:34 Last Admin: 12/22/16 14:34 Dose: 1,000 mls Lorazepam (Ativan Injection) 1 mg IVP EDNOW ONE Stop: 12/22/16 14:58 Last Admin: 12/22/16 15:06 Dose: 1 mg Ondansetron HCl (Zofran) 4 mg IVP EDNOW ONE Stop: 12/22/16 14:34 Last Admin: 12/22/16 14:34 Dose: 4 mg Departure - Departure Disposition: Home, Routine, Self-Care Clinical Impression: Cyclic vomiting syndrome Condition: Good Instructions: Acute Nausea and Vomiting (ED) Additional Instructions: 1. Take 4mg Zofran by mouth every 4-6 hours as needed for nausea. 2. Follow-up with your primary care provider for further evaluation of these episodes of vomiting and shortness of breath. 3. Return to the Emergency Department if your nausea and vomiting return and cannot be controlled with at-home medications, if you experience chest pain or worsening shortness of breath, or for other serious concerns. Referrals: Samuel Wade MD [Primary Care Provider] - As per Instructions Prescriptions: Ondansetron Odt [Zofran Odt 4 mg (*)] 4 mg PO Q4 PRN #6 tab PRN Reason: Nausea Report Scribed for: Virginie Barfield Report Scribed by: Ju Zaman Date of Report: 12/22/16 Time of Report: 14:51 Physician Review and Approval Statement: 12/22/16 14:51 Portions of this note were transcribed by a medical clinic manager. I personally performed a history, physical exam, medical decision making, and confirmed accuracy of information the transcribed note.
[2016-12-22] MEDS ORDERED: LORazepam 2 MG/ML INJ IVP ONE (14:57)
[2016-12-22 15:33] VITALS: O2SAT 95
== END 2016-12-22 16:10 | disposition home or self-care (01) ==
DX: G43.A0 Cyclical vomiting, in migraine, not intractable (principal); Z87.891 Personal history of nicotine dependence
CPT/HCPCS: 96374; J2060; J2405

== ENCOUNTER → 2017-01-17 | Outpatient (CLI) | payer OTHER | LOC: BMCIMAGING 07:50 | PROVIDERS: ATTEND Internal Medicine | DX: K82.4 Cholesterolosis of gallbladder (principal); D35.01 Benign neoplasm of right adrenal gland ==

== ENCOUNTER 2017-05-02 04:26 | Emergency (ER) | payer OTHER ==
[2017-05-02] MEDS ORDERED: NS 1,000 ML IV ONE ×2 (05:19)
[2017-05-02] MEDS ORDERED: ONDANSETRON 4 MG/2 ML VIAL IVP ONE (05:19)
[2017-05-02] MEDS ORDERED: HALOPERIDOL LACT 5 MG/ML INJ IVP ONE (05:19)
[2017-05-02 05:53] LABS: % IMMATURE GRANULYOCYTES 0.3 % (0.0-1.1); ABSOLUTE IMMATURE GRANULOCYTES 0.04 10^3/uL (0.00-0.10); ADD DIFF? NO; ADD MORPH? NO; ADD SCAN? NO; ATYPICAL LYMPHOCYTE FLAG 0 (0-99); FRAGMENT RBC FLAG 0 (0-99); HEMATOCRIT 47.3 % (40.0-51.0); HEMOGLOBIN 16.4 g/dL (13.7-17.5); LEFT SHIFT FLG 0 (0-99); LIPEMIA HEMOLYSIS FLAG 90 (0-99); MEAN CELL HEMOGLOBIN 29.7 pg (27.9-34.1); MEAN CELL HEMOGLOBIN CONCENTR. 34.7 g/dL (32.4-36.7); MEAN CELL VOLUME 85.7 fL (81.5-99.8); MEAN PLATELET VOLUME 11.4 fL (8.7-11.7); PLATELET CLUMPS FLAG 10 (0-99); PLATELET COUNT 179 10^3/uL (150-400); RED BLOOD CELL COUNT 5.52 10^6/uL (4.40-6.38); RED CELL DISTRIBUTION WIDTH 12.6 % (11.5-15.2)
[2017-05-02 06:05] LABS: ALANINE AMINOTRANSFERASE 45 IU/L (21-72); ALBUMIN 5.1 g/dL (3.5-5.0); ALKALINE PHOSPHATASE 61 IU/L (38-126); ANION GAP 17 mEq/L (8-16); ASPARTATE AMINOTRANSFERASE 45 IU/L (17-59); BILIRUBIN,TOTAL 1.2 mg/dL (0.1-1.4); BILIRUBIN-CONJUGATED 0.2 mg/dL (0.0-0.5); CARBON DIOXIDE 19 mEq/l (22-31); CHLORIDE 102 mEq/L (97-110); GLOMERULAR FILTRATION RATE > 60; GLUCOSE 100 mg/dL (70-100); POTASSIUM 3.5 mEq/L (3.5-5.2); SODIUM 138 mEq/L (134-144); TOTAL PROTEIN 7.9 g/dL (6.3-8.2)
[2017-05-02] MEDS ORDERED: PROPARACAINE 0.5% 15 ML OPHT DROP EACHEYE ONE (06:26)
--- NOTE | 2017-05-02 06:35 | EDPHY ---
H & P Stated Complaint: vomiting x 3 days HPI/ROS: HPI The patient presents with vomiting which has been present for the last 3 days and has been constant, he has been unable to take anything by mouth because of the vomiting. His pain began 3 nights ago in his abdomen which was diffuse and severe. The pain has now improved, however the vomiting persists. Tried drinking sips of water, however he vomited. Several months ago he had an evaluation by Dr. Milligan of Gastroenterology. He had endoscopy and ultrasound. His workup was relatively unremarkable, however he was found to have gallbladder polyps. He does not have any medication at home to take for vomiting. He has had about 4 episodes of this which have caused him to seek treatment in the emergency room. His symptoms usually improved with IV fluids and antiemetics. REVIEW OF SYSTEMS Constitutional: No fever, no chills. Eyes: No discharge. ENT: No sore throat. Cardiovascular: No chest pain, no palpitations. Respiratory: No cough, no shortness of breath. Gastrointestinal: No abdominal pain, positive for vomiting Genitourinary: No hematuria. Musculoskeletal: No back pain. Skin: No rashes. Neurological: No headache. PMHx: Episodic vomiting Soc Hx: Housed PHYSICAL General Appearance: Alert, no distress Eyes: Pupils equal and round no pallor or injection ENT, Mouth: Mucous membranes dry Respiratory: There are no retractions, lungs are clear to auscultation Cardiovascular: Regular rate and rhythm Gastrointestinal: Abdomen is soft and non-tender, no masses, bowel sounds normal Neurological: A&O, moves all extremities Skin: Warm and dry, no rashes Musculoskeletal: Neck is supple non tender Extremities: symmetrical, full range of motion Psychiatric: Patient is oriented X 3, there is no agitation Source: Patient, Old records Exam Limitations: No limitations - Personal History Current Tetanus/Diphtheria Vaccine: Yes Tetanus Vaccine Date: < 10 YEARS - Medical/Surgical History Hx Asthma: No Hx Chronic Respiratory Disease: No Hx Diabetes: No Hx Cardiac Disease: No Hx Renal Disease: No Hx Cirrhosis: No Hx Alcoholism: No Hx HIV/AIDS: No Hx Splenectomy or Spleen Trauma: No Other PMH: PMHx: medical adenogland cyst, anxiety. PSHx: r shoulder - Social History Smoking Status: Former smoker Constitutional: Initial Vital Signs Temperature (C) 36.9 C 05/02/17 04:27 Heart Rate 66 05/02/17 04:27 Respiratory Rate 16 05/02/17 04:27 Blood Pressure 107/71 05/02/17 04:27 O2 Sat (%) 95 05/02/17 04:27 O2 Delivery Mode Room Air O2 (L/minute) 2 Allergies/Adverse Reactions: No Known Allergies Allergy (Verified 11/20/16 04:24) Home Medications: Medication Instructions Recorded Ondansetron Odt [Zofran Odt 4 mg 4 mg PO Q4 PRN #10 tab 05/02/17 (*)] Medical Decision Making Differential Diagnosis: This is a 46-year-old man with history of episodes of vomiting who presents with 3 days now of persistent vomiting, not able to tolerate p.o. on exam, he is dehydrated appearing, his abdominal exam is benign. Differential diagnosis includes is cyclic vomiting syndrome, migraine, cannabinoid hyperemesis syndrome, gastroenteritis. In the emergency department, patient was given IV fluids and antiemetics improvement in his symptoms. Labs were checked and did reveal dehydration. He was eventually able to tolerate fluids by mouth and was discharged home with follow-up as needed. - Data Points Laboratory Results: Laboratory Results 05/02/17 05:35 05/02/17 05:35 05/02/17 05/02/17 05:35 05:35 WBC 11.89 10^3/uL H 10^3/uL (3.80-9.50) RBC 5.52 10^6/uL 10^6/uL (4.40-6.38) Hgb 16.4 g/dL g/dL (13.7-17.5) Hct 47.3 % % (40.0-51.0) MCV 85.7 fL fL (81.5-99.8) MCH 29.7 pg pg (27.9-34.1) MCHC 34.7 g/dL g/dL (32.4-36.7) RDW 12.6 % % (11.5-15.2) Plt Count 179 10^3/uL 10^3/uL (150-400) MPV 11.4 fL fL (8.7-11.7) Neut % (Auto) 73.3 % % (39.3-74.2) Lymph % (Auto) 19.5 % % (15.0-45.0) [place] % (Auto) 6.3 % % (4.5-13.0) Eos % (Auto) 0.3 % L % (0.6-7.6) Baso % (Auto) 0.3 % % (0.3-1.7) Nucleat RBC Rel Count 0.0 % % (0.0-0.2) Absolute Neuts (auto) 8.72 10^3/uL H 10^3/uL (1.70-6.50) Absolute Lymphs (auto) 2.32 10^3/uL 10^3/uL (1.00-3.00) Absolute Monos (auto) 0.75 10^3/uL 10^3/uL (0.30-0.80) Absolute Eos (auto) 0.03 10^3/uL 10^3/uL (0.03-0.40) Absolute Basos (auto) 0.03 10^3/uL 10^3/uL (0.02-0.10) Absolute Nucleated RBC 0.00 10^3/uL 10^3/uL (0-0.01) Immature Gran % 0.3 % % (0.0-1.1) Immature Gran # 0.04 10^3/uL 10^3/uL (0.00-0.10) Sodium 138 mEq/L mEq/L (134-144) Potassium 3.5 mEq/L mEq/L (3.5-5.2) Chloride 102 mEq/L mEq/L (97-110) Carbon Dioxide 19 mEq/l L mEq/l (22-31) Anion Gap 17 mEq/L H mEq/L (8-16) BUN 28 mg/dL H mg/dL (7-23) Creatinine 1.0 mg/dL mg/dL (0.7-1.3) Estimated GFR > 60 Glucose 100 mg/dL mg/dL (70-100) Calcium 11.0 mg/dL H mg/dL (8.5-10.4) Phosphorus 1.2 mg/dL L mg/dL (2.5-4.5) Total Bilirubin 1.2 mg/dL mg/dL (0.1-1.4) Conjugated Bilirubin 0.2 mg/dL mg/dL (0.0-0.5) Unconjugated Bilirubin 1.0 mg/dL mg/dL (0.0-1.1) AST 45 IU/L IU/L (17-59) ALT 45 IU/L IU/L (21-72) Alkaline Phosphatase 61 IU/L IU/L (38-126) Total Protein 7.9 g/dL g/dL (6.3-8.2) Albumin 5.1 g/dL H g/dL (3.5-5.0) Lipase 98 IU/L IU/L (23-300) Medications Given: Discontinued Medications Haloperidol Lactate (Haldol Injection) 2.5 mg IVP EDNOW ONE Stop: 05/02/17 05:20 Last Admin: 05/02/17 05:31 Dose: 2.5 mg Sodium Chloride (Ns) 1,000 mls @ 0 mls/hr IV EDNOW ONE; Wide Open PRN Reason: Protocol Stop: 05/02/17 05:20 Last Admin: 05/02/17 05:30 Dose: 1,000 mls Sodium Chloride (Ns) 1,000 mls @ 0 mls/hr IV EDNOW ONE; Wide Open PRN Reason: Protocol Stop: 05/02/17 05:20 Last Admin: 05/02/17 05:31 Dose: 1,000 mls Ondansetron HCl (Zofran) 4 mg IVP EDNOW ONE Stop: 05/02/17 05:20 Last Admin: 05/02/17 05:31 Dose: 4 mg Proparacaine HCl (Alcaine 0.5%) 1 drops EACHEYE ONCE ONE Stop: 05/02/17 06:27 Last Admin: 05/02/17 06:28 Dose: Not Given Departure - Departure Disposition: Home, Routine, Self-Care Clinical Impression: Nausea & vomiting Qualifiers: Vomiting type: unspecified Vomiting Intractability: non-intractable Qualified Code(s): R11.2 - Nausea with vomiting, unspecified Condition: Good Instructions: Acute Nausea and Vomiting (ED) Referrals: Torin Milligan MD [[facility] [place] Primary Care Provider] - As per Instructions Prescriptions: Ondansetron Odt [Zofran Odt 4 mg (*)] 4 mg PO Q4 PRN #10 tab PRN Reason: Nausea/Vomiting, Can'T Take Po
[2017-05-02 07:53] VITALS: BP 106/63; PULSE 66; RESP 16; TEMP 98.4; O2SAT 96
== END 2017-05-02 06:57 | disposition home or self-care (01) ==
DX: R11.2 Nausea with vomiting, unspecified (principal); E86.9 Volume depletion, unspecified; Z87.891 Personal history of nicotine dependence
CPT/HCPCS: 96374; J2405

== ENCOUNTER 2018-03-26 10:00 | Emergency (ER) | payer OTHER ==
[2018-03-26] MEDS ORDERED: HALOPERIDOL LACT 5 MG/ML INJ IVP ONE (10:42)
[2018-03-26] MEDS ORDERED: NS 1,000 ML IV ONE ×2 (10:43→11:32)
[2018-03-26 11:05] LABS: PLATELET COUNT 211 10^3/uL (150-400)
--- NOTE | 2018-03-26 13:06 | EDPHY ---
H & P Time Seen by Provider: 03/26/18 10:23 HPI/ROS: CHIEF COMPLAINT: Vomiting, dehydration HISTORY OF PRESENT ILLNESS: 47-year-old male presents to the emergency department with multiple episodes of vomiting since today. The patient has had similar episodes in the past. Patient has no associated abdominal pain. No diarrhea. No fevers or chills. No pain in his chest or difficulty breathing. He has seen a data management specialist in the past. REVIEW OF SYSTEMS: Constitutional: No fever, no chills. Eyes: No double or blurry vision. ENT: No sore throat. Respiratory: No cough, no shortness of breath. Cardiac: No chest pain. Gastrointestinal: Vomiting. No abdominal pain or diarrhea. Genitourinary: No dysuria. Musculoskeletal: No neck or back pain. Skin: No rashes. Neurological: No headache. Past Medical/Surgical History: Adrenal glands cyst, orthopedic surgery, cholecystitis Social History: Smoking Status: Former smoker Physical Exam: General Appearance: Alert, moderate distress. Eyes: Pupils equal and round. Extraocular motions are all intact. ENT: Mouth: Mucous membranes slightly dry Respiratory: No wheezing, rhonchi, or rales, lungs are clear to auscultation. Cardiovascular: Regular rate and rhythm. Gastrointestinal: Abdomen is soft and nontender, no masses, no rebound or guarding, bowel sounds normal. Neurological: Alert and oriented x 3, cranial nerves II through XII grossly intact Skin: Warm and dry, no rashes. Musculoskeletal: Nontender to palpate along the cervical, thoracic or lumbar spine. Neck is supple. Extremities: Full range of motion and no peripheral edema. Psychiatric: Patient is oriented X 3, there is no agitation. Constitutional: Initial Vital Signs Temperature (C) 36.8 C 03/26/18 10:18 Heart Rate 50 L 03/26/18 10:18 Respiratory Rate 19 03/26/18 10:18 Blood Pressure 105/55 L 03/26/18 10:18 O2 Sat (%) 99 03/26/18 10:18 O2 Delivery Mode Room Air Allergies/Adverse Reactions: No Known Allergies Allergy (Verified 03/26/18 10:18) Home Medications: Medication Instructions Recorded NK [No Known Home Meds] 03/26/18 Medical Decision Making ED Course/Re-evaluation: The patient has been seen in the emergency department with similar symptoms. He was given 2.5 mg of IV Haldol with relief. He was beginning to feel slightly nauseous again and was given 0.5 mg of IV Ativan and felt like his symptoms had resolved. He was drinking fluid in eating some crackers and felt comfortable being discharged home. Laboratory studies [place] [id number] likely from demargination vomiting. I do not think this patient has acute abdomen. His abdomen is completely benign and nontender to palpate. Laboratory studies are unremarkable. I encouraged close follow-up with Gastroenterology and instructed to return if he developed recurring symptoms, abdominal pain, or any other concerns. Differential Diagnosis: Including but not limited to gastroenteritis, dehydration, electrolyte abnormality, cyclical vomiting syndrome a, bowel obstruction - Data Points Laboratory Results: Laboratory Results 03/26/18 10:50 03/26/18 10:50 03/26/18 03/26/18 10:50 10:50 WBC 17.15 10^3/uL H 10^3/uL (3.80-9.50) RBC 5.31 10^6/uL 10^6/uL (4.40-6.38) Hgb 15.8 g/dL g/dL (13.7-17.5) Hct 45.5 % % (40.0-51.0) MCV 85.7 fL fL (81.5-99.8) MCH 29.8 pg pg (27.9-34.1) MCHC 34.7 g/dL g/dL (32.4-36.7) RDW 12.6 % % (11.5-15.2) Plt Count 211 10^3/uL 10^3/uL (150-400) MPV 11.0 fL fL (8.7-11.7) Neut % (Auto) 85.2 % H % (39.3-74.2) Lymph % (Auto) 10.4 % L % (15.0-45.0) [place] % (Auto) 3.7 % L % (4.5-13.0) Eos % (Auto) 0.1 % L % (0.6-7.6) Baso % (Auto) 0.2 % L % (0.3-1.7) Nucleat RBC Rel Count 0.0 % % (0.0-0.2) Absolute Neuts (auto) 14.61 10^3/uL H 10^3/uL (1.70-6.50) Absolute Lymphs (auto) 1.78 10^3/uL 10^3/uL (1.00-3.00) Absolute Monos (auto) 0.63 10^3/uL 10^3/uL (0.30-0.80) Absolute Eos (auto) 0.02 10^3/uL L 10^3/uL (0.03-0.40) Absolute Basos (auto) 0.04 10^3/uL 10^3/uL (0.02-0.10) Absolute Nucleated RBC 0.00 10^3/uL 10^3/uL (0-0.01) Immature Gran % 0.4 % % (0.0-1.1) Immature Gran # 0.07 10^3/uL 10^3/uL (0.00-0.10) Sodium 142 mEq/L mEq/L (135-145) Potassium 4.8 mEq/L mEq/L (3.3-5.0) Chloride 108 mEq/L mEq/L (97-110) Carbon Dioxide 16 mEq/l L mEq/l (22-31) Anion Gap 18 mEq/L H mEq/L (8-16) BUN 21 mg/dL mg/dL (7-23) Creatinine 1.0 mg/dL mg/dL (0.7-1.3) Estimated GFR > 60 Glucose 151 mg/dL H mg/dL (70-100) Calcium 10.8 mg/dL H mg/dL (8.5-10.4) Phosphorus 1.0 mg/dL L mg/dL (2.5-4.5) Total Bilirubin 0.9 mg/dL mg/dL (0.1-1.4) Conjugated Bilirubin 0.2 mg/dL mg/dL (0.0-0.5) Unconjugated Bilirubin 0.7 mg/dL mg/dL (0.0-1.1) AST 30 IU/L IU/L (17-59) ALT 29 IU/L IU/L (21-72) Alkaline Phosphatase 66 IU/L IU/L (38-126) Total Protein 7.5 g/dL g/dL (6.3-8.2) Albumin 5.1 g/dL H g/dL (3.5-5.0) Lipase 92 IU/L IU/L (23-300) Medications Given: Discontinued Medications Haloperidol Lactate (Haldol Injection) 2.5 mg IVP EDNOW ONE Stop: 03/26/18 10:43 Last Admin: 03/26/18 10:55 Dose: 2.5 mg Sodium Chloride (Ns) 1,000 mls @ 0 mls/hr IV ONCE ONE PRN Reason: Wide Open Stop: 03/26/18 10:44 Last Admin: 03/26/18 10:51 Dose: 1,000 mls Sodium Chloride (Ns) 1,000 mls @ 0 mls/hr IV EDNOW ONE; Wide Open PRN Reason: Protocol Stop: 03/26/18 11:33 Last Admin: 03/26/18 11:34 Dose: 1,000 mls Lorazepam (Ativan Injection) 0.5 mg IVP EDNOW ONE Stop: 03/26/18 13:10 Last Admin: 03/26/18 13:13 Dose: 0.5 mg Departure - Departure Disposition: Home, Routine, Self-Care Clinical Impression: Nausea & vomiting Qualifiers: Vomiting type: unspecified Vomiting Intractability: non-intractable Qualified Code(s): R11.2 - Nausea with vomiting, unspecified Condition: Good Instructions: Acute Nausea and Vomiting (ED) Additional Instructions: Clear liquids and slowly advance diet as tolerated. Referrals: Samuel Wade MD [Primary Care Provider] - As per Instructions Torin Milligan MD [[facility] [place] Primary Care Provider] - 2-3 days without fail ( Clinical Mental Health Counselor at [facility])
[2018-03-26] MEDS ORDERED: LORazepam 2 MG/ML INJ IVP ONE (13:09)
[2018-03-26 13:13] VITALS: BP 118/68
== END 2018-03-26 14:21 | disposition home or self-care (01) ==
DX: R11.2 Nausea with vomiting, unspecified (principal); E86.9 Volume depletion, unspecified; Z87.891 Personal history of nicotine dependence
CPT/HCPCS: 96374; J1630; J2060

== ENCOUNTER 2018-07-18 10:39 | Emergency (ER) | payer OTHER ==
[2018-07-18] MEDS ORDERED: HALOPERIDOL LACT 5 MG/ML INJ IVP ONE (11:38)
[2018-07-18] MEDS ORDERED: HALOPERIDOL LACT 5 MG/ML INJ ONE (11:39)
[2018-07-18] MEDS ORDERED: FAMOTIDINE 20 MG/NACL 50 ML IV ONE (11:45)
[2018-07-18] MEDS ORDERED: NS 1,000 ML IV ONE ×2 (11:45)
[2018-07-18 11:53] LABS: PLATELET COUNT 223 10^3/uL (150-400)
--- NOTE | 2018-07-18 13:12 | EDPHY ---
H & P Time Seen by Provider: 07/18/18 11:45 HPI/ROS: HPI Nausea and vomiting. 48-year-old male by private vehicle. This patient reports that he started vomiting at 4:00 a.m.. He was awaken with nausea. Last meal was last night. No diarrhea. He has a history of cyclic vomiting syndrome. He has been dry heaving for the last 1-2 hours. He reports that Haldol works well for him. Denies significant abdominal pain. ROS: Constitutional: No fever, no chills. No weakness. Respiratory: No cough. No shortness of breath. Cardiac: No chest pain, no palpitations. Gastrointestinal: No abdominal pain, as above, no diarrhea. Genitourinary: No hematuria. No dysuria or increased frequency with urination. Musculoskeletal: No back pain. No neck pain. No myalgias or arthralgias. Skin: No rashes. Neurological: No headache. No focal weakness or altered sensation. Past medical history: As above, anxiety. He reports he has had problems with his gallbladder in the past. Social history: Nonsmoker. No alcohol. Here by himself. Physical Exam: General Appearance: Alert, dry heaving, he appears uncomfortable. This patient is responding to questions appropriately and in full sentences. This patient appears well-hydrated and well-nourished. Eyes: Pupils equal and round no pallor or injection. No lid edema, erythema or injection. Respiratory: There are no retractions, lungs are clear to auscultation with good air movement bilaterally. Cardiovascular: Regular rate and rhythm. No murmur. Gastrointestinal: Abdomen is soft and nontender, no masses, bowel sounds normal. No focal tenderness at McBurney's point. No Szymanski sign. Neurological: Motor sensory function is grossly intact. Cranial nerves are normal. Gait is normal. Skin: Warm and dry, no rashes. Musculoskeletal: Neck is supple and nontender. Extremities are symmetrical. All joints range without pain or impingement. Psychiatric: No agitation. No depression. Database: EKG: Imaging: Procedures: Emergency department course: Triage vital signs reviewed and are normal. He is afebrile. IV placed. He was started on IV normal saline with 1-2 L to be given over the next 1-2 hours. He was given 20 mg of IV Pepcid and 2.5 mg of IV Haldol. Blood work significant for leukocytosis. This is likely secondary to his vomiting. LFTs and lipase normal. 1:10 p.m., patient re-evaluated, resting comfortably. He is now taking oral fluids. He reports feeling much better. He tells me that the Haldol work well. Repeat abdominal exam is soft, nontender nondistended. He feels comfortable being discharged and I feel he is safe to go home. Follow-up and return to emergency department precautions reviewed with him. All of his questions were answered. He was discharged from the emergency department in good condition. Differential Diagnosis: The differential diagnosis on this patient includes but is not limited to cyclic vomiting syndrome. Cholecystitis, appendicitis, bowel obstruction, pancreatitis, ulcerative gastritis unlikely. This represents a partial list of diagnoses considered. These considerations are based on history, physical exam , past history, reassessment and diagnostic testing. Smoking Status: Former smoker Constitutional: Initial Vital Signs Heart Rate 50 L 07/18/18 10:55 Respiratory Rate 18 07/18/18 10:55 Blood Pressure 112/72 07/18/18 10:55 O2 Sat (%) 100 07/18/18 10:55 O2 Delivery Mode Room Air Allergies/Adverse Reactions: No Known Allergies Allergy (Verified 07/18/18 10:57) Home Medications: Medication Instructions Recorded Ondansetron Odt [Zofran Odt 4 mg 4 mg PO Q4PRN PRN #10 tab 07/18/18 (*)] Medical Decision Making - Data Points Laboratory Results: Laboratory Results 07/18/18 11:30 07/18/18 11:30 07/18/18 07/18/18 11:30 11:30 WBC 18.83 10^3/uL H 10^3/uL (3.80-9.50) RBC 5.17 10^6/uL 10^6/uL (4.40-6.38) Hgb 15.5 g/dL g/dL (13.7-17.5) Hct 44.5 % % (40.0-51.0) MCV 86.1 fL fL (81.5-99.8) MCH 30.0 pg pg (27.9-34.1) MCHC 34.8 g/dL g/dL (32.4-36.7) RDW 12.6 % % (11.5-15.2) Plt Count 223 10^3/uL 10^3/uL (150-400) MPV 11.1 fL fL (8.7-11.7) Neut % (Auto) 88.9 % H % (39.3-74.2) Lymph % (Auto) 7.1 % L % (15.0-45.0) [place] % (Auto) 3.3 % L % (4.5-13.0) Eos % (Auto) 0.0 % L % (0.6-7.6) Baso % (Auto) 0.2 % L % (0.3-1.7) Nucleat RBC Rel Count 0.0 % % (0.0-0.2) Absolute Neuts (auto) 16.73 10^3/uL H 10^3/uL (1.70-6.50) Absolute Lymphs (auto) 1.34 10^3/uL 10^3/uL (1.00-3.00) Absolute Monos (auto) 0.62 10^3/uL 10^3/uL (0.30-0.80) Absolute Eos (auto) 0.00 10^3/uL L 10^3/uL (0.03-0.40) Absolute Basos (auto) 0.04 10^3/uL 10^3/uL (0.02-0.10) Absolute Nucleated RBC 0.00 10^3/uL 10^3/uL (0-0.01) Immature Gran % 0.5 % % (0.0-1.1) Immature Gran # 0.10 10^3/uL 10^3/uL (0.00-0.10) Sodium 141 mEq/L mEq/L (135-145) Potassium 4.4 mEq/L mEq/L (3.5-5.2) Chloride 109 mEq/L mEq/L (97-110) Carbon Dioxide 18 mEq/l L mEq/l (22-31) Anion Gap 14 mEq/L mEq/L (6-14) BUN 22 mg/dL mg/dL (7-23) Creatinine 1.0 mg/dL mg/dL (0.7-1.3) Estimated GFR > 60 Glucose 154 mg/dL H mg/dL (70-100) Calcium 10.4 mg/dL mg/dL (8.5-10.4) Total Bilirubin 1.1 mg/dL mg/dL (0.1-1.4) Conjugated Bilirubin 0.3 mg/dL mg/dL (0.0-0.5) Unconjugated Bilirubin 0.8 mg/dL mg/dL (0.0-1.1) AST 29 IU/L IU/L (17-59) ALT 41 IU/L IU/L (21-72) Alkaline Phosphatase 63 IU/L IU/L (38-126) Total Protein 7.2 g/dL g/dL (6.3-8.2) Albumin 5.0 g/dL g/dL (3.5-5.0) Lipase 80 IU/L IU/L (23-300) Medications Given: Discontinued Medications Haloperidol Lactate (Haldol Injection) 2.5 mg IVP EDNOW ONE Stop: 07/18/18 11:39 Last Admin: 07/18/18 11:42 Dose: 2.5 mg Sodium Chloride (Ns) 1,000 mls @ 0 mls/hr IV EDNOW ONE; Wide Open PRN Reason: Protocol Stop: 07/18/18 11:46 Last Admin: 07/18/18 12:19 Dose: 1,000 mls Sodium Chloride (Ns) 1,000 mls @ 0 mls/hr IV EDNOW ONE; Wide Open PRN Reason: Protocol Stop: 07/18/18 11:46 Last Admin: 07/18/18 12:20 Dose: 1,000 mls Famotidine/Sodium Chloride (Pepcid 20 Mg (Premix)) 50 mls @ 200 mls/hr IV EDNOW ONE Stop: 07/18/18 11:59 Last Admin: 07/18/18 12:18 Dose: 50 mls Departure - Departure Disposition: Home, Routine, Self-Care Clinical Impression: Vomiting, Cyclic vomiting syndrome Condition: Good Instructions: Cyclic Vomiting Syndrome (ED) Additional Instructions: Read and follow provided instructions. Follow-up with your primary care physician in 2-3 days for re-evaluation. Take medication as prescribed for nausea. Return to the emergency department for vomiting and inability to keep fluids down despite medication, worsening abdominal pain or other serious concerns. Prescriptions: Ondansetron Odt [Zofran Odt 4 mg (*)] 4 mg PO Q4PRN PRN #10 tab PRN Reason: For Nausea & Vomiting
[2018-07-18 13:27] VITALS: BP 112/78
== END 2018-07-18 13:27 | disposition home or self-care (01) ==
DX: G43.A0 Cyclical vomiting, in migraine, not intractable (principal); E86.9 Volume depletion, unspecified; F41.9 Anxiety disorder, unspecified
CPT/HCPCS: 96374; J1630